=== PATIENT | male | born 1945 | race Caucasian/White ===

== ENCOUNTER → 2016-10-01 | Outpatient (REF) ==
[2016-10-03 14:14] LABS: Lyme Disease IgG/IgM Antibodie <0.91 ISR (0.00-0.90); Lyme Disease IgM Ab Quantitati <0.80 index (0.00-0.79)
== END ==
LOC: M LAB 15:03
PROVIDERS: ATTEND Nurse Practitioner Family
DX: Z11.59 Encounter for screening for other viral diseases (principal)

== ENCOUNTER → 2020-03-17 | Outpatient (CLI) | payer OTHER ==
[~2020-03-17] MED LIST: FLOM0.4C39 PO; IBUP-1425 PO; OMEP1CAP73 PO; OXYC1TAB23 PO; SILD100T PO; SIMV10TA21 PO
== END ==
LOC: M LABSMTC 09:54
PROVIDERS: ATTEND Anesthesiology
DX: Z01.812 Encounter for preprocedural laboratory examination (principal); Z20.828 Contact with and (suspected) exposure to other viral communicable diseases
CPT/HCPCS: C9803; U0003

== ENCOUNTER 2020-03-22 09:25 | Day surgery (SDC) | payer OTHER ==
[~2020-03-22] VITALS: Ht 182.9 cm; Wt 103.4 kg
[~2020-03-22 09:25] MED LIST changes: -FLOM0.4C39 PO; +LIDOCAINE 1% MDV 20ML VIAL SQ PRN; +LR 1,000 ML IV ONE; -OXYC1TAB23 PO; +ceFAZolin SOD 2 GM in IV 1 EA IV ONE
[2020-03-22] MEDS ORDERED: LIDOCAINE 2% 100MG/5ML SDV (FOR ANES.) As Ordered ONE (10:29)
[2020-03-22] MEDS ORDERED: propofoL 200 MG/20 ML VIAL As Ordered ONE (10:29)
[2020-03-22] MEDS ORDERED: ONDANSETRON 4MG/2ML VIAL As Ordered ONE (10:29)
[2020-03-22] MEDS ORDERED: fentaNYL 100 MCG/2 ML INJECTION (J3010) As Ordered ONE (10:29)
[2020-03-22] MEDS ORDERED: MIDAZOLAM INJ 2MG/2ML VIAL (J2250 PER 1MG) As Ordered ONE (10:29)
[2020-03-22] MEDS ORDERED: FLOM0.4C39 PO (10:58)
[2020-03-22] MEDS ORDERED: OXYC1TAB23 PO (10:58)
[2020-03-22] MEDS ORDERED: ePHEDrine SULFATE 25 MG/5 ML(5MG/ML) SYRINGE As Ordered ONE (11:27)
--- NOTE | 2020-03-22 11:30 | ROOPDOC ---
[facility] Report Of Operation Report of Operation DATE OF PROCEDURE: 03/22/20 PREPROCEDURE DIAGNOSIS: Kidney stones. POSTPROCEDURE DIAGNOSIS: Kidney stones. PROCEDURE: Left extracorporeal shock wave lithotripsy. SURGEON: Richard Sanches MD RETAIL LOAN OFFICER: None. ANESTHESIA: Monitored anesthesia care (MAC). OPERATIVE INDICATIONS: This is a 74-year-old male recently found to have left- sided kidney stones, measuring up to 7mm in size. He was brought to the operating room today for treatment. DESCRIPTION OF PROCEDURE: The patient was brought to the operating room and monitored anesthesia care (MAC) was administered. Prophylactic antibiotics were infused. He was then placed in the supine position for left-sided extracorporeal shock wave lithotripsy. Approximately 4 stones were seen on fluoroscopy, with 3 in the lower pole and the largest measuring 7mm. Fluoroscopy was utilized to monitor stone position and fragmentation throughout the procedure. Shock waves were then delivered to the kidney stones, ungated. There were no arrhythmias. The stones appeared to fragment well. After 2,500 shocks, the procedure was concluded. The patient was then awakened from anesthesia and transported to the recovery room in stable condition. Estimated blood loss: Zero mL. Complications: None. Specimens: None. Plan: The patient will followup in the clinic in a few weeks with imaging prior to assess for residual stone burden. RICHARD SANCHES MD Mar 22, 2020 11:15
[2020-03-22 12:40] VITALS: BP 153/81
--- NOTE | 2020-03-26 11:08 | REP ---
KUB ABDOMEN AND PELVIS HISTORY: Kidney stones. TECHNIQUE: AP view of the abdomen and pelvis is performed. FINDINGS: Bowel gas pattern is normal with no evidence of bowel obstruction. There are four or five calcifications overlying the lower pole of the left kidney presumably representing renal calculi. Largest is 7 mm in diameter. Smallest is about 2-3 mm. In the left inferior pelvis, there is a rounded calcific density. This measures about 4 mm in diameter. There is a subtle lucency in the center, which suggests that this represents a phlebolith. More inferiorly in the midline of the pelvis, there are two similar appearing rounded calcifications. There are moderate degenerative changes of the spine. IMPRESSION: Left renal calculi. Cannot exclude distal left ureteral calculus. MTDD
== END 2020-03-22 12:45 | disposition home or self-care (01) ==
LOC: M SDC 09:25
PROVIDERS: ATTEND Urology
DX: N20.0 Calculus of kidney (principal); Z79.899 Other long term (current) drug therapy; F12.10 Cannabis abuse, uncomplicated
CPT/HCPCS: 50590; 74018; J0690; J2250; J2405; J3010

== ENCOUNTER → 2020-06-21 | Outpatient (CLI) | payer OTHER ==
[~2020-06-21] MED LIST changes: +FLOM0.4C39 PO; -LIDOCAINE 1% MDV 20ML VIAL SQ PRN; -LR 1,000 ML IV ONE; +OXYC1TAB23 PO; -ceFAZolin SOD 2 GM in IV 1 EA IV ONE
== END ==
LOC: M LABSMTC 10:34
PROVIDERS: ATTEND Ophthalmology Retina Specialist
DX: Z01.812 Encounter for preprocedural laboratory examination (principal); Z20.822 Contact with and (suspected) exposure to COVID-19

== ENCOUNTER → 2020-08-18 | Outpatient (CLI) | payer OTHER | LOC: M LABSMTC 09:37 | PROVIDERS: ATTEND Ophthalmology Retina Specialist | DX: Z01.812 Encounter for preprocedural laboratory examination (principal); Z20.822 Contact with and (suspected) exposure to COVID-19 ==

== ENCOUNTER 2020-09-10 10:47 | Emergency (ER) | payer OTHER, MEDICARE ==
[~2020-09-10] VITALS: Ht 182.9 cm; Wt 102.3 kg
[2020-09-10] MEDS ORDERED: KETOROLAC 30 MG/ML 1ML VIAL IV ONE (11:30)
[2020-09-10] MEDS ORDERED: NS 1,000 ML IV ONE (11:30)
[2020-09-10] MEDS ORDERED: ISOVUE-370 76% 100ML VIAL As Ordered ONE (11:57)
[2020-09-10 11:59] LABS: BASO % 0.2 % (0.0-1.0); EOS # 0.1 10^3/uL (0.0-0.5); EOS % 0.7 % (0.0-3.0); HEMOGLOBIN 18.1 g/dl (13.5-17.5); LYMPH # 1.4 10^3/uL (1.5-5.0); LYMPH % 14.5 % (24.0-44.0); MEAN CORPUSCULAR HEMOGLOBIN 32.6 pg (27.0-33.0); MEAN CORPUSCULAR HGB CONC 34.2 g/dl (32.0-36.5); MEAN CORPUSCULAR VOLUME 95.5 fl (80.0-96.0); MONO # 0.7 10^3/uL (0.0-0.8); MONO % 6.9 % (2.0-8.0); NEUTROPHILS # 7.2 10^3/uL (1.5-8.5); NEUTROPHILS % 77.2 % (36.0-66.0); PLATELET COUNT, AUTOMATED 248 10^3/uL (150-450); RED BLOOD COUNT 5.55 10^6/uL (4.30-6.10); WHITE BLOOD COUNT 9.4 10^3/uL (4.0-10.0)
[2020-09-10 12:29] LABS: ALBUMIN 3.9 GM/DL (3.2-5.2); BILIRUBIN,DIRECT 0.3 MG/DL (0.0-0.2); BILIRUBIN,TOTAL 0.7 MG/DL (0.2-1.0); TOTAL PROTEIN 6.9 GM/DL (6.4-8.2)
[2020-09-10] MEDS ORDERED: MORPHINE 4 MG/ML 1ML VIAL/SYRINGE (J2270) IV ONE (12:40)
--- NOTE | 2020-09-10 12:41 | REP ---
INDICATION: right flank pain. COMPARISON: None TECHNIQUE: Axial contrast-enhanced images from the lung bases to the pubic symphysis using 100 cc Isovue 370 intravenous contrast material. . This CT examination was performed using the following dose reduction techniques: Automated exposure control, adjustment of mA and/or kv according to the patient's size, and the use of iterative reconstruction technique. FINDINGS: Lung bases demonstrate mild fibroatelectatic changes as well as 3 mm noncalcified left lower lobe nodule. Liver demonstrates mild fatty infiltration without focal hepatic lesion. Spleen, pancreas, bilateral adrenal glands and right kidney are normal. Cholelithiasis noted without acute cholecystitis. Left kidney includes multiple nonobstructing intrarenal calculi measuring up to 7 mm without perinephric stranding, hydroureteronephrosis, or obstructing ureteral calculus. The enteric system demonstrates diverticulosis without acute diverticulitis. There is no evidence for bowel obstruction or acute inflammatory process. Normal terminal ileum and appendix are identified in the right lower quadrant. Pelvis demonstrates enlarged prostate gland measuring roughly 5.5 cm maximal diameter with mass effect on the base of the bladder. No ascites. No free air. No obvious adenopathy. Atherosclerotic changes to the aorta and vasculature noted without aneurysm or dissection. Musculoskeletal structures demonstrate age-related degenerative changes. IMPRESSION: 1. No acute abdominopelvic pathology appreciated. No ascites. No free air. No focal inflammatory stranding. 2. Nonacute findings as above including left nephrolithiasis, cholelithiasis, and diverticulosis. 3. Prostatomegaly with mass effect on the base of the bladder. <Electronically signed by Michael Jorge > 09/10/20 [id number]
--- NOTE | 2020-09-10 13:14 | REP ---
INDICATION: lung nodule on ct/left flank pain COMPARISON: None. TECHNIQUE: PA and lateral. FINDINGS: The mediastinum and cardiac silhouette are normal. Mild chronic appearing scarring at the left base. No obvious acute consolidation, effusion, or pneumothorax. IMPRESSION: Chronic-appearing left basilar changes. <Electronically signed by Michael Jorge > 09/10/20 [id number]
[2020-09-10 14:18] VITALS: BP 129/80
== END 2020-09-10 14:20 | disposition home or self-care (01) ==
LOC: M ED 10:47
DX: R10.9 Unspecified abdominal pain (principal); R11.2 Nausea with vomiting, unspecified; Z87.442 Personal history of urinary calculi; Z79.899 Other long term (current) drug therapy; Z88.8 Allergy status to other drugs, medicaments and biological substances; F12.20 Cannabis dependence, uncomplicated
CPT/HCPCS: 71046; 74177; 80047; 80076; 81001; 83690; 85025; 96361; 96374; 96375; 99284; J1885; J2270; Q9967